=== PATIENT | male | born 1985 | race Caucasian/White ===

== ENCOUNTER 2017-06-30 17:11 | Emergency (ER) | payer OTHER ==
[~2017-06-30] VITALS: Ht 185.4 cm; Wt 100.4 kg
[2017-06-30 18:47] VITALS: BP 124/67
== END 2017-06-30 18:48 | disposition home or self-care (01) ==
LOC: EME 17:11
DX: T40.1X1A Poisoning by heroin, accidental (unintentional), initial encounter (principal); F17.200 Nicotine dependence, unspecified, uncomplicated
CPT/HCPCS: 99281; 99285; J2310